=== PATIENT | male | born 1970 | race Caucasian/White ===

== ENCOUNTER 2017-10-22 13:20 | Day surgery (SDC) | payer MEDICARE ==
[2017-10-22] MEDS ORDERED: DIPRIVAN 200 MG/20 ML IV ONE (13:21)
[2017-10-22] MEDS ORDERED: Marcaine 0.5% SDV 10 ML IJ ONE (13:21)
[2017-10-22] MEDS ORDERED: Xylocaine-Mpf 2% 5 Ml Vial IJ ONE (13:21)
[2017-10-22] MEDS ORDERED: Ketamine HCl 50 MG/ML IV ONE (13:21)
[2017-10-22] MEDS ORDERED: Xylocaine-Mpf 2 ML IJ ONE (13:21)
[2017-10-22] MEDS ORDERED: Lactated Ringers 1,000 ML IV ONE (13:21)
--- NOTE | 2017-10-22 14:57 | XRAY ---
Indication: Right L4-L5 MBB. Intraoperative fluoroscopy was provided for 21 seconds. Single digital spot image submitted for interpretation demonstrates a posterior spinal needle tips projecting over the right L3 and L3-L4 interspace. Correlate with intraoperative findings/report. Incidental partially visualized bilateral L5 spinal hardware.
--- NOTE | 2017-10-22 15:02 | XRAY ---
21 seconds fluoroscopy time in surgery for right L4-5 MBB.
--- NOTE | 2017-10-23 11:04 | OP ---
DATE OF PROCEDURE: 10/22/2017 1417 SURGEON: Geoff Roblero D.O. PREOPERATIVE DIAGNOSIS: Degenerative lumbar spine disease, spondylosis, low back pain. POSTOPERATIVE DIAGNOSIS: Degenerative lumbar spine disease, spondylosis, low back pain. PROCEDURE PERFORMED: Right L4-L3 medial branch block under fluoroscopic guidance. DESCRIPTION OF THE PROCEDURE: The patient was taken to the operating room and placed in the prone position on the table. Skin at the injection site was prepped and draped in sterile fashion. Under fluoroscopy, bony anatomy of the targeted injection site was visualized. Induction agent was given as per anesthesia while vital signs were monitored. Local anesthetic agent of 0.5 cc of 1% lidocaine preservative free was introduced to anesthetize the skin and the subcutaneous tissue through the injection site. Under fluoroscopic guidance, a #20 gauge standard spinal needle was advanced into the target medial branch through the oblique approach. The preservative free 0.5 cc of 1% lidocaine and 0.5 cc of 0.25% Marcaine were injected into each of the targeted medial branch nerve. After the needle was being removed, the skin was cleansed with alcohol and then a bandage was applied. No complications or adverse consequences were observed. The patient was returned to the holding area until stabilized before discharge to home. After the procedure the residual pain level was 0 out of 10. There was no muscle weakness after the procedure. The patient will be followed up within ten days after the injection for re-evaluation.
== END 2017-10-22 14:55 | disposition home or self-care (01) ==
LOC: SDC-PAIN 13:20
PROVIDERS: ATTEND Internal Medicine
DX: M96.1 Postlaminectomy syndrome, not elsewhere classified (principal); M54.5 Low back pain; M54.16 Radiculopathy, lumbar region; Z79.891 Long term (current) use of opiate analgesic
CPT/HCPCS: 64493; 64494; 72020; 76000; J2704

== ENCOUNTER 2020-08-07 09:42 | Emergency (ER) | payer MEDICARE ==
[2020-08-07] MEDS ORDERED: BABY ASPIRIN 81 MG CHEW PO ONE (10:15)
[2020-08-07] MEDS ORDERED: Catapres 0.1 MG PO ONE (10:16)
[2020-08-07 10:21] LABS: Absolute Neutrophil Ct (ANC) 8.32 (1.4-6.9); BASOPHIL % 0.2 % (0.0-0.4); Basophil (Absolute #) 0.03 (0-0.4); Eosinophil % 2.3 % (0.00-5.0); Eosinophil (Absolute #) 0.29 (0-0.5); Hematocrit 44.5 % (42-50); Hemoglobin 15.2 gm/dl (12.5-18.0); Lymphocyte (Absolute #) 3.07 (1.0-4.6); Lymphocytes % 23.9 % (24.0-44.0); Mean Cell Volume 87.3 fl (78-100); Mean Corpuscular Hemoglobin 29.8 pg (26-32); Mean Corpuscular Hgb Concent. 34.2 g/dl (32-36); Mean Platelet Volume 10.1 fl (7.5-11.0); Monocyte (Absolute #) 1.14 (0.0-1.3); Monocytes % 8.9 % (0.0-12.0); Neutrophil % 64.7 % (36.0-66.0); Platelet Count 388 K/mm3 (150-450); Red Cell Distribution Width 14.7 % (11.5-14.0); White Blood Count 12.9 K/mm3 (4.0-10.5)
[2020-08-07] MEDS ORDERED: BABY ASPIRIN 81 MG CHEW ONE (10:27)
[2020-08-07] MEDS ORDERED: Catapres 0.1 MG ONE (10:27)
[2020-08-07 10:29] LABS: INR 1.13 (0.8-3.0); PROTIME 12.8 SECONDS (8.83-12.87)
--- NOTE | 2020-08-07 10:31 | XRAY ---
Indication: Left chest pain 2 weeks. Short of breath. Comparison: November 08, 2013. Portable chest remains hyperinflated and clear. Heart and mediastinum structures within normal limits. Bony thorax intact again with distal right clavicle resection. Impression: Continued nonacute hyperinflated chest.
[2020-08-07 10:43] LABS: ALBUMIN 5.2 g/dL (3.5-5.0); ALKALINE PHOSPHATASE 73 U/L (38-126); ANION GAP 14.6 MEQ/L (5-15); BLOOD UREA NITROGEN 23 mg/dL (9-20); CHLORIDE 101 mmol/L (98-107); Calcium 10.2 mg/dL (8.4-10.2); Carbon Dioxide 22 mmol/L (22-30); Creatinine 1 0.67 mg/dL (0.66-1.25); EST GLOMERULAR FILTRATION RATE > 60.0 ML/MIN; Glucose 118 mg/dL (74-106); NT PRO BNP 43.2 pg/mL (0-450); Potassium 3.8 mmol/L (3.5-5.1); SGOT/AST 24 U/L (17-59); SGPT/ALT 12 U/L (0-50); SODIUM 134 mmol/L (137-145); Total Protein 8.6 g/dL (6.3-8.2)
--- NOTE | 2020-08-07 11:53 | ERPHSYRPT ---
- History of Present Illness Source: patient Patient Subjective Stated Complaint: SOB/Chest pain Triage Nursing Assessment: .... Physician History: 51 yo wm w dyspnea x 2wks. Pt has also had some mild L sternal chest pain described as a dull-ache wo radiation. Pain is rated a 2/10 at present but has been up to a 9/10. He has also had some N/V wo diaphoresis. Pt had CV19 in Nov but denies cough/coryza at present. He smokes 1ppd and has HTN/Hyperlipidemia. Timing/Duration: week(s) (2wks) Activities at Onset: rest Severity of Dyspnea-Max: moderate Severity of Dyspnea-Current: mild Possible Cause: occasional episodes (2wks) Modifying Factors: Improves With: activity Associated Symptoms: No anxiety, No cough, No chest pain/discomfort, No edema, No fever, No insomnia, No loss of appetite, No lightheadedness, No wheezing, No weakness, No ankle swelling, No chills, No hemoptysis, No calf pain, No dizziness, No heaviness, No heart racing, No lightheadedness, No leg swelling, No muscle spasms feet, No muscle spasms hands, No painful breathing, No productive cough, No sweating, No tightness Allergies/Adverse Reactions: No Known Drug Allergies Allergy (Verified 08/07/20 09:49) Home Medications: Metoprolol Tartrate 50 mg PO BID 03/19/17 [History] Celecoxib [Celebrex] 200 mg PO DAILY 11/03/17 [History] Hx Tetanus, Diphtheria Vaccination/Date Given: Yes (4 years ago) Hx Influenza Vaccination/Date Given: Yes Hx Pneumococcal Vaccination/Date Given: No Immunizations Up to Date: Yes Travel Risk - International Travel Have you traveled outside of the country in past 3 weeks: No - Coronavirus Screening Are you exhibiting any of the following symptoms?: Yes - Review of Systems Constitutional: No Symptoms Eyes: No Symptoms Ears, Nose, & Throat: No Symptoms Respiratory: Dyspnea, Dyspnea on Exertion (VILLAFANA) Cardiac: Chest Pain Abdominal/Gastrointestinal: Nausea, Vomiting, No Diarrhea Genitourinary Symptoms: No Symptoms Musculoskeletal: No Symptoms Skin: No Symptoms Neurological: No Symptoms Psychological: No Symptoms Hematologic/Lymphatic: No Symptoms Immunological/Allergic: No Symptoms - Past Medical History Pertinent Past Medical History: Yes Neurological History: Other ENT History: No Pertinent History Cardiac History: Hypertension Respiratory History: COPD, Bronchitis Endocrine Medical History: Hyperthyroidism Musculoskeletal History: Degenerative Disk Disease GI Medical History: No Pertinent History, Ulcer, GERD History: No Pertinent History Psycho-Social History: Anxiety Male Reproductive Disorders: No Pertinent History Other Medical History: Thrush. episdoes of numbness in arms and legs - Past Surgical History Past Surgical History: Yes Neuro Surgical History: No Pertinent History Cardiac: No Pertinent History Respiratory: No Pertinent History Gastrointestinal: No Pertinent History Genitourinary: No Pertinent History Musculoskeletal: Orthopedic Surgery Male Surgical History: No Pertinent History Other Surgical History: tonsils, spinal surgery. Repair of clavicle on right side. C6-C7 fusion - Social History Smoking Status: Current every day smoker How long have you smoked: years Exposure to second hand smoke: No Drug Use: none Patient Lives Alone: No - Nursing Vital Signs Nursing Vital Signs: Initial Vital Signs Temperature 98.0 F 08/07/20 09:50 Pulse Rate 81 08/07/20 09:50 Respiratory Rate 24 08/07/20 09:50 Blood Pressure 194/123 08/07/20 09:50 O2 Sat by Pulse Oximetry 100 08/07/20 09:50 Pain Scale Pain Intensity 0 - Physical Exam General Appearance: no apparent distress, anxiety Eye Exam: PERRL/EOMI, eyes nml inspection Ears, Nose, Throat Exam: hearing grossly normal, normal ENT inspection, normal pharynx, No abnormal TM (R), No abnormal TM (L) Neck Exam: normal inspection, non-tender, supple, No Brudzinski, No Kernig's Respiratory Exam: normal breath sounds, lungs clear, airway intact, No respiratory distress Cardiovascular/Chest Exam: normal heart sounds, regular rate/rhythm, normal peripheral pulses, No murmur Abdominal/Gastrointestinal Exam: soft, normal bowel sounds, No tenderness Extremity Exam: non-tender, normal range of motion, normal inspection, normal capillary refill, no calf tenderness, no pedal edema Peripheral Pulses Exam: carotid (R): 2+, carotid (L): 2+ Neurologic Exam: alert, oriented x 3, cooperative, tool or die drawing checker II-XII nml as tested, normal mood/affect, nml cerebellar function, nml station & gait, sensation nml, No motor deficits, No sensory deficit Skin Exam: normal color, warm, dry, No rash Lymphatic Exam: No adenopathy SpO2 Interpretation: normal SpO2: 99 O2 Delivery: Room Air - Course Nursing assessment & vital signs reviewed: Yes EKG Interpreted by Me: RATE (NSR/R69/Normal QT-QTc/No acute ST-Twave changes) - Radiology Exams Chest X-ray Interpretation: Discussed w/ radiologist (CXR Nothing acute per Rad) - CT Exams Chest CT Interpretation: Discussed w/radiologist (CTA chest neg per Rad) Ordered Tests: Active Orders 24 hr Category Date Time Status EKG-ER Only STAT Care 08/07/20 10:07 Active IV Insertion STAT Care 08/07/20 10:07 Active CHEST 1 VIEW (PORTABLE) Stat Exams 08/07/20 10:07 Completed CBC W DIFF Stat Lab 08/07/20 10:07 Completed CMP Stat Lab 08/07/20 10:00 Completed D-DIMER QUANTITATIVE Stat Lab 08/07/20 10:00 Completed NT PRO BNP Stat Lab 08/07/20 10:00 Completed PROTIME WITH INR Stat Lab 08/07/20 10:00 Completed TROPONIN Q3H Lab 08/07/20 10:00 Completed TROPONIN Q3H Lab 08/07/20 13:53 Completed TROPONIN Q3H Lab 08/07/20 16:15 Ordered TROPONIN Q3H Lab 08/07/20 19:15 Ordered TROPONIN Q3H Lab 08/07/20 22:15 Ordered Medication Summary Discontinued Medications Generic Name Dose Route Start Last Admin Trade Name Freq PRN Reason Stop Dose Admin Aspirin 324 mg 08/07/20 10:15 08/07/20 10:28 Baby Aspirin 81 Mg Chew PO 08/07/20 10:16 324 mg STAT ONE Administration Aspirin Confirm 08/07/20 10:27 Baby Aspirin 81 Mg Chew Administered 08/07/20 10:28 Dose 324 mg .ROUTE .STK-MED ONE Clonidine 0.2 mg 08/07/20 10:16 08/07/20 10:28 Catapres 0.1 Mg PO 08/07/20 10:17 0.2 mg STAT ONE Administration Clonidine Confirm 08/07/20 10:27 Catapres 0.1 Mg Administered 08/07/20 10:28 Dose 0.2 mg .ROUTE .STK-MED ONE Lab/Rad Data: Laboratory Result Diagrams 08/07/20 10:07 08/07/20 10:00 Laboratory Results 08/07/20 08/07/20 08/07/20 Range/Units 13:53 10:07 10:00 WBC 12.9 H (4.0-10.5) K/mm3 RBC 5.10 (4.1-5.6) M/mm3 Hgb 15.2 (12.5-18.0) gm/dl Hct 44.5 (42-50) % MCV 87.3 (78-100) fl MCH 29.8 (26-32) pg MCHC 34.2 (32-36) g/dl RDW 14.7 H (11.5-14.0) % Plt Count 388 (150-450) K/mm3 MPV 10.1 (7.5-11.0) fl Gran % 64.7 (36.0-66.0) % Eos # (Auto) 0.29 (0-0.5) Absolute Lymphs (auto) 3.07 (1.0-4.6) Absolute Monos (auto) 1.14 (0.0-1.3) Lymphocytes % 23.9 L (24.0-44.0) % Monocytes % 8.9 (0.0-12.0) % Eosinophils % 2.3 (0.00-5.0) % Basophils % 0.2 (0.0-0.4) % Absolute Granulocytes 8.32 H (1.4-6.9) Basophils # 0.03 (0-0.4) PT (8.83-12.87) SECONDS INR (0.8-3.0) D-Dimer (215-500) ng/mL Sodium (137-145) mmol/L Potassium (3.5-5.1) mmol/L Chloride (98-107) mmol/L Carbon Dioxide (22-30) mmol/L Anion Gap (5-15) MEQ/L BUN (9-20) mg/dL Creatinine (0.66-1.25) mg/dL Estimated GFR ML/MIN Glucose (74-106) mg/dL Calcium (8.4-10.2) mg/dL Total Bilirubin (0.2-1.3) mg/dL AST (17-59) U/L ALT (0-50) U/L Alkaline Phosphatase (38-126) U/L Troponin I < 0.012 < 0.012 (0.000-0.034) ng/mL NT-Pro-B Natriuret Pep (0-450) pg/mL Serum Total Protein (6.3-8.2) g/dL Albumin (3.5-5.0) g/dL 08/07/20 08/07/20 Range/Units 10:00 10:00 WBC (4.0-10.5) K/mm3 RBC (4.1-5.6) M/mm3 Hgb (12.5-18.0) gm/dl Hct (42-50) % MCV (78-100) fl MCH (26-32) pg MCHC (32-36) g/dl RDW (11.5-14.0) % Plt Count (150-450) K/mm3 MPV (7.5-11.0) fl Gran % (36.0-66.0) % Eos # (Auto) (0-0.5) Absolute Lymphs (auto) (1.0-4.6) Absolute Monos (auto) (0.0-1.3) Lymphocytes % (24.0-44.0) % Monocytes % (0.0-12.0) % Eosinophils % (0.00-5.0) % Basophils % (0.0-0.4) % Absolute Granulocytes (1.4-6.9) Basophils # (0-0.4) PT 12.8 (8.83-12.87) SECONDS INR 1.13 (0.8-3.0) D-Dimer 394 (215-500) ng/mL Sodium 134 L (137-145) mmol/L Potassium 3.8 (3.5-5.1) mmol/L Chloride 101 (98-107) mmol/L Carbon Dioxide 22 (22-30) mmol/L Anion Gap 14.6 (5-15) MEQ/L BUN 23 H (9-20) mg/dL Creatinine 0.67 (0.66-1.25) mg/dL Estimated GFR > 60.0 ML/MIN Glucose 118 H (74-106) mg/dL Calcium 10.2 (8.4-10.2) mg/dL Total Bilirubin 1.00 (0.2-1.3) mg/dL AST 24 (17-59) U/L ALT 12 (0-50) U/L Alkaline Phosphatase 73 (38-126) U/L Troponin I (0.000-0.034) ng/mL NT-Pro-B Natriuret Pep 43.2 (0-450) pg/mL Serum Total Protein 8.6 H (6.3-8.2) g/dL Albumin 5.2 H (3.5-5.0) g/dL - Progress Progress: improved Air Movement: good Progress Note: 08/07/20 13:17 BP decreased w 0.2 po Clonidine/324mg po ASA given 08/07/20 14:49 Trop neg x2 08/07/20 14:56 Spoke w prema Mcguire to send home with cardiology follow up on Friday. Counseled pt/family regarding: lab results, diagnosis, need for follow-up, rad results - Departure Departure Disposition: Home Clinical Impression: Dyspnea, Chest pain Condition: Stable Critical Care Time: No Referrals: MARYCRUZ WATTS [Primary Care Provider] - Instructions: Shortness of Breath (Dyspnea) (DC), Chest Pain (DC) Additional Instructions: Keep your cardiology appointment on Friday Continue current medications Return to ER for increassing pain or shortness of breath
[2020-08-07 13:14] VITALS: O2SAT 99
[2020-08-07 14:58] VITALS: BP 132/84; PULSE 56
== END 2020-08-07 15:17 | disposition home or self-care (01) ==
LOC: ED 09:42
DX: R07.9 Chest pain, unspecified (principal); R06.00 Dyspnea, unspecified; I10 Essential (primary) hypertension; E78.5 Hyperlipidemia, unspecified; R11.2 Nausea with vomiting, unspecified; E05.90 Thyrotoxicosis, unspecified without thyrotoxic crisis or storm; J44.9 Chronic obstructive pulmonary disease, unspecified; Z79.899 Other long term (current) drug therapy
CPT/HCPCS: 36000; 36415; 71045; 80053; 83880; 84484; 85025; 85379; 85610; 93005; 99284; A9270-GY

== ENCOUNTER 2020-09-08 05:53 | Day surgery (SDC) | payer MEDICARE ==
[2020-09-08] MEDS ORDERED: Lactated Ringers 1,000 ML IV SCH (06:00)
[2020-09-08] MEDS ORDERED: Xylocaine-Mpf 2% 5 Ml Vial ONE (07:49)
[2020-09-08] MEDS ORDERED: DIPRIVAN 200 MG/20 ML IV ONE (07:49)
[2020-09-08 08:28] VITALS: O2SAT 98
--- NOTE | 2020-09-08 09:10 | OP ---
SURGERY DATE/TIME: 09/08/2020 0745 PREOPERATIVE DIAGNOSIS: Epigastric pain. POSTOPERATIVE DIAGNOSIS: Mild gastritis. PROCEDURE: Esophagogastroduodenoscopy with cold forceps biopsy. SURGEON: Dr. Humphreys. ANESTHESIA: Medications were given by the anesthesia department. HISTORY: The patient is a 50 year old white male patient who reports that it feels like there is a ball in his stomach. He has been having epigastric pain for some time now. He has had evaluations by cardiology and pulmonary. He has been placed on amoxicillin and prednisone for this problem. He has still not improved. The patient is felt the need to have endoscopic evaluation. He was appraised of the risks of the procedure including the risk of perforation, phlebitis, untoward reaction to medication, bleeding and missed lesions. The patient verbalized his understanding and desired to have the procedure performed. DESCRIPTION OF PROCEDURE: The patient was given the medications by the anesthesia department. He had continuous pulse oximetry, ECG monitoring, intermittent blood pressure monitoring and tidal CO2 monitoring during the examination. He was placed in the left lateral decubitus position. A bite block was placed and the flexible Olympus gastroscope was used to intubate the oropharynx. A view of the larynx was obtained and was normal. The scope was easily introduced in the esophagus which appeared to be normal throughout its length. The stomach was entered where normal gastric rugal folds were seen and these distended nicely with insufflation of air. The scope was passed along the greater curvature of the stomach to the antrum. The pylorus encountered and intubated. Duodenum inspected and found to be normal. The scope is withdrawn towards the stomach again. A retroflex view was obtained of the lesser curvature, fundus and cardia regions of the stomach and this appeared to be normal as well. The scope was then redirected towards the gastric antrum and biopsies were obtained to rule out the presence of Helicobacter pylori-type organisms. The scope was then removed from the patient who tolerated the procedure well and was sent back to the hospital siu in good condition.
[2020-09-08 09:21] VITALS: BP 138/81; PULSE 72
== END 2020-09-08 09:20 | disposition home or self-care (01) ==
LOC: SDC 05:53
PROVIDERS: ATTEND Family Medicine
DX: K29.70 Gastritis, unspecified, without bleeding (principal)
CPT/HCPCS: 99000; J2704

== ENCOUNTER 2021-11-19 05:49 | Day surgery (SDC) | payer MEDICARE ==
[2021-11-19] MEDS ORDERED: Lactated Ringers 1,000 ML IV SCH (06:30)
[2021-11-19] MEDS ORDERED: Xylocaine-Mpf 2% 5 Ml Vial ONE (07:02)
[2021-11-19] MEDS ORDERED: DIPRIVAN 200 MG/20 ML IV ONE ×2 (07:02→07:18)
[2021-11-19 07:47] VITALS: O2SAT 97
[2021-11-19 08:13] VITALS: BP 153/90; PULSE 59
--- NOTE | 2021-11-19 13:24 | OP ---
SURGERY DATE/TIME: 11/19/2021 0704 PREOPERATIVE DIAGNOSIS: Epigastric pain. POSTOPERATIVE DIAGNOSIS: Moderate gastritis. PROCEDURE: EGD with cold forceps biopsy. SURGEON: Dr. Humphreys. ANESTHESIA: MAC. Medications given by anesthesia department. BRIEF HISTORY: The patient is a 51-year-old white male patient presenting for epigastric pain he has had for months. The patient does not take any NSAID's and has nothing on his medical chart that would indicate reason for his pain. The patient was felt the need to have endoscopic evaluation. He was appraised of the risks of the procedure including the risk of perforation, phlebitis, untoward reaction to medication and missed lesions. The patient verbalized his understanding and desired to have the procedure performed. DESCRIPTION OF PROCEDURE: The patient was given the medications by the anesthesia department. He had continuous pulse oximetry, ECG monitoring, intermittent blood pressure monitoring. He was placed in the left lateral decubitus position. A bite block was placed. Flexible Olympus gastroscope was used to intubate the oropharynx. A view of the larynx was obtained and was normal. The scope was easily passed in the esophagus which was normal throughout its length. The stomach was entered where normal gastric rugal folds were seen and these distended nicely with insufflation of air. The scope was passed along the greater curvature of the stomach to the antrum. Retroflex view was obtained of the lesser curvature, fundus and cardia regions of the stomach and these appeared to be normal. The scope was then redirected towards the gastric antrum. Pylorus encountered and intubated. Duodenum inspected and found to be normal. The scope was withdrawn towards the stomach. Cold forceps biopsy was used to biopsy the gastric antrum to rule out the presence of Helicobacter pylori-type organisms. The scope was then removed from the patient who tolerated the procedure well and was sent back to the hospital siu in good condition.
== END 2021-11-19 08:10 | disposition home or self-care (01) ==
LOC: SDC 05:49 → EDSTATUS 14:41
PROVIDERS: ATTEND Family Medicine
DX: K29.70 Gastritis, unspecified, without bleeding (principal); R10.13 Epigastric pain
CPT/HCPCS: J2704

== ENCOUNTER 2022-10-04 05:53 | Day surgery (SDC) | payer MEDICARE ==
[2022-10-04 06:14] LABS: Hematocrit 43.3 % (42-50); Hemoglobin 14.1 g/dL (12.5-18.0); Mean Cell Volume 91.9 fL (78-100); Mean Corpuscular Hemoglobin 29.9 pg (26-32); Mean Corpuscular Hgb Concent. 32.6 g/dL (32-36); Mean Platelet Volume 8.9 fL (7.5-11.0); Platelet Count 333 x10^3/uL (150-450); Red Blood Count 4.71 x10^6/uL (4.1-5.6); Red Cell Distribution Width 14.2 % (11.5-14.0); White Blood Count 12.7 x10^3/uL (4.0-10.5)
[2022-10-04 06:27] LABS: ANION GAP 13.7 MEQ/L (5-15); BLOOD UREA NITROGEN 27 mg/dL (9-20); CHLORIDE 105 mmol/L (98-107); Calcium 9.1 mg/dL (8.4-10.2); Carbon Dioxide 26 mmol/L (22-30); EST GLOMERULAR FILTRATION RATE > 60.0 ML/MIN; Glucose 83 mg/dL (74-106); Potassium 3.8 mmol/L (3.5-5.1); SODIUM 141 mmol/L (137-145)
[2022-10-04] MEDS ORDERED: Lactated Ringers 1,000 ML IV SCH (06:30)
[2022-10-04] MEDS ORDERED: CEFAZOLIN 2 GM-D5W BAG** 2 GM/50 ML ML IV SCH (06:30)
[2022-10-04] MEDS ORDERED: Versed 2 MG/2 ML Injection ONE ×2 (07:05→07:10)
[2022-10-04] MEDS ORDERED: Xylocaine-Mpf 2% 5 Ml Vial ONE (07:09)
[2022-10-04] MEDS ORDERED: DIPRIVAN 200 MG/20 ML IV ONE (07:09)
[2022-10-04] MEDS ORDERED: SUBLIMAZE 100 MCG/2 ML ONE (07:09)
[2022-10-04] MEDS ORDERED: XYLOCAINE 1% HCL 20 ML MDV ONE (07:20)
[2022-10-04] MEDS ORDERED: Marcaine Mpf 0.5% Vial 30 Ml ONE (07:20)
[2022-10-04 08:52] VITALS: BP 118/86; PULSE 78; O2SAT 99
--- NOTE | 2022-10-07 10:39 | OP ---
SURGERY DATE/TIME: 10/04/2022 0743 PREOPERATIVE DIAGNOSIS: Soft tissue mass right foot. POSTOPERATIVE DIAGNOSIS: Soft tissue mass right foot. PROCEDURE: Excision of soft tissue mass right foot. SURGEON: Adrian Clarke DPM. STATE ASSESSED PROPERTIES DIRECTOR: None. ANESTHESIA: Monitored anesthesia care plus preoperative local block consisting of 20 cc of 1:1 mixture injected in a mini-Handley block-type fashion. HEMOSTASIS: Ankle tourniquet set to 250 mm of Mercury for 10 minutes total tourniquet minutes. ESTIMATED BLOOD LOSS: Minimal. MATERIALS: 3-0 Nylon. INJECTABLES: 20 cc of 1:1 mixture of 1% lidocaine plain and 0.5% bupivacaine plain. INDICATIONS FOR THE PROCEDURE: Elia is a very pleasant 52-year-old male known to my service for pain involving the lower extremities secondary to hammer toes. To his right foot the patient has complaints of pain in between his fourth and fifth digit as a result of some hammering digits with adductovarus orientation. As a result, he has not necessarily developing kissing lesions between the toes however within the web space he has developed some significantly calloused tissue that causes significant amount of irritation with ambulation and shoe gear. At this time the patient is desperate to have this lesion removed. Attempts in the office were unsuccessful due to the level pain that he was having. At this time the decision was made to proceed and incise in total down to the level of the subcutaneous layer soft tissue mass and find out for sure what its pathology of origin is. The patient understands all risks, complications and benefits of surgical intervention at this time including but not limited to infection, hematoma, seroma, possibility of delayed wound healing, nonwound healing and failure of surgical intervention. The patient understands all of these risks and wishes to proceed. DESCRIPTION OF PROCEDURE AND FINDINGS: At this time the patient was brought into the OR and placed on the OR table in the supine position. At this time adequate monitored anesthesia care was administered until the patient was sedated. A well-padded ankle tourniquet was applied and the tourniquet set to 250 mm of Mercury. At this time the right foot was prepped and draped in the typical sterile fashion and lowered onto the surgical field. At this time attention was directed to the fifth web space where gentle traction was applied to the fifth digit laterally in order to gain access to the web space. The soft tissue mass was then excised this was excised in total and sent off the field for pathologic assessment. At this time copious amounts of sterile saline were utilized to flush the surgical site. Iodine was then used to flush the surgical site and then once again sterilized with sterile saline. 3-0 Nylon was then utilized to coapt the skin edges in a simple interrupted-type fashion. A dressing consisting of Betadine, Adaptic, 4x4, Kerlix and HAKEEM was applied to the patient's right lower extremity. The tourniquet was let down. Total tourniquet minutes was noted. The patient then was reversed from anesthesia and returned to the postoperative anesthesia care unit with vital signs stable and vascular status intact. The patient handled the anesthesia as well as the procedure without significant complication. Postoperative orders as indicated in the patient's discharge chart.
== END 2022-10-04 09:00 | disposition home or self-care (01) ==
LOC: SDC 05:53
PROVIDERS: ATTEND Podiatrist Foot & Ankle Surgery
DX: R22.41 Localized swelling, mass and lump, right lower limb (principal)
CPT/HCPCS: 11420; 36415; 80048; 85027; J0690; J2250; J2704; J3010

== ENCOUNTER 2024-04-07 14:34 | Day surgery (SDC) | payer MEDICARE ==
[2024-04-07] MEDS ORDERED: Xylocaine-Mpf 2% 5 Ml Vial IJ ONE (14:35)
[2024-04-07] MEDS ORDERED: DIPRIVAN 200 MG/20 ML IV ONE (15:55)
[2024-04-07] MEDS ORDERED: Lactated Ringers 1,000 ML IV ONE (16:11)
--- NOTE | 2024-04-07 17:40 | XRAY ---
Indication: Left C2-C4 MBB. Intraoperative fluoroscopy provided for 20 seconds. 2 digital spot image submitted for interpretation demonstrates posterior needle tips projecting over the expected left C2-C4 nerve roots. Correlate with intraoperative findings/report. Incidental lower cervical fusion hardware.
--- NOTE | 2024-04-07 17:44 | XRAY ---
20 seconds of fluoroscopy was used in surgery for a left C2-C4 MBB.
== END 2024-04-07 16:25 | disposition home or self-care (01) ==
LOC: SDC-PAIN 14:34
PROVIDERS: ATTEND Psychiatry & Neurology Pain Medicine
DX: M47.812 Spondylosis without myelopathy or radiculopathy, cervical region (principal)
CPT/HCPCS: 64490; 64491; 72040; 77002; J2704

== ENCOUNTER 2024-05-05 07:52 | Day surgery (SDC) | payer MEDICARE ==
[2024-05-05] MEDS ORDERED: BUPIVACAINE 0.5% VIAL IJ ONE (07:53)
[2024-05-05] MEDS ORDERED: DIPRIVAN 200 MG/20 ML IV ONE ×2 (09:36→09:40)
[2024-05-05] MEDS ORDERED: Lactated Ringers 1,000 ML IV ONE (09:52)
--- NOTE | 2024-05-05 10:31 | XRAY ---
Indication: Left C2-C4 MBB. Intraoperative fluoroscopy provided for 12 seconds. 3 digital spot image submitted for interpretation demonstrates posterior needle tips projecting over the expected left C2-C4 nerve roots. Correlate with intraoperative findings/report. Incidental lower cervical fusion hardware.
--- NOTE | 2024-05-05 11:33 | XRAY ---
15 seconds of fluoroscopy was used in surgery for a left C2-C4 MBB.
== END 2024-05-05 10:05 | disposition home or self-care (01) ==
LOC: SDC-PAIN 07:52
PROVIDERS: ATTEND Psychiatry & Neurology Pain Medicine
DX: M47.812 Spondylosis without myelopathy or radiculopathy, cervical region (principal)
CPT/HCPCS: 64490; 64491; 72040; 77002; J2704

== ENCOUNTER 2024-06-02 06:56 | Day surgery (SDC) | payer MEDICARE ==
[2024-06-02] MEDS ORDERED: Decadron 4 MG INJ IV ONE (06:57)
[2024-06-02] MEDS ORDERED: BUPIVACAINE 0.5% VIAL IJ ONE (06:57)
[2024-06-02] MEDS ORDERED: LIDOCAINE HCL 1% AMPUL 5 ML IJ ONE (06:57)
[2024-06-02] MEDS ORDERED: DIPRIVAN 200 MG/20 ML IV ONE ×2 (08:00→08:08)
[2024-06-02] MEDS ORDERED: PHENYLEPHRINE HCL ONE (08:13)
--- NOTE | 2024-06-02 10:11 | XRAY ---
Indication: Left C2-C4 RFA. Intraoperative fluoroscopy provided for 17 seconds. 3 digital spot images submitted for interpretation demonstrates posterior needle tips projecting over the expected left C2-C4 nerve roots. Correlate with intraoperative findings/report. Incidental lower cervical fusion hardware.
--- NOTE | 2024-06-02 12:10 | XRAY ---
17 seconds of fluoroscopy was used in surgery for a left C2-C4 RFA.
== END 2024-06-02 08:36 | disposition home or self-care (01) ==
LOC: SDC-PAIN 06:56
PROVIDERS: ATTEND Psychiatry & Neurology Pain Medicine
DX: M47.812 Spondylosis without myelopathy or radiculopathy, cervical region (principal)
CPT/HCPCS: 64633; 64634; 72040; 77002; J1100; J2371; J2704

== ENCOUNTER 2024-09-08 09:55 | Emergency (ER) | payer MEDICARE ==
[2024-09-08 10:04] VITALS: TEMP 97.6
[2024-09-08 10:29] LABS: Absolute Neutrophil Ct (ANC) 7.32 x10^3/uL (1.78-5.38); BASOPHIL % 0.4 % (0.2-1.2); Basophil (Absolute #) 0.04 x10^3/uL (0.01-0.08); Eosinophil % 2.8 % (0.8-7.0); Eosinophil (Absolute #) 0.31 x10^3/uL (0.04-0.54); Hematocrit 41.2 % (40.1-51.0); Hemoglobin 14.1 g/dL (13.7-17.5); IMMATURE GRAN # 0.03 x10^3u/L (0.001-0.031); IMMATURE GRAN % 0.3 % (0.001-0.429); Lymphocyte (Absolute #) 2.21 x10^3/uL (1.32-3.57); Mean Cell Volume 89.4 fL (79.0-92.2); Mean Corpuscular Hemoglobin 30.6 pg (25.7-32.2); Mean Corpuscular Hgb Concent. 34.2 g/dL (32.3-36.5); Mean Platelet Volume 9.7 fL (9.4-12.4); Monocyte (Absolute #) 1.14 x10^3/uL (0.30-0.82); Monocytes % 10.3 % (5.3-12.2); Neutrophil % 66.2 % (34.0-67.9); Platelet Count 301 x10^3/uL (163-337); Red Blood Count 4.61 x10^6/uL (4.63-6.08); Red Cell Distribution Width 14.2 % (11.6-14.4); White Blood Count 11.1 x10^3/uL (4.23-9.07)
[2024-09-08] MEDS ORDERED: BABY ASPIRIN 81 MG CHEW ONE (10:42)
[2024-09-08] MEDS ORDERED: Zofran 4 MG/2 ML VIAL ONE (10:42)
[2024-09-08] MEDS ORDERED: Norflex 60 MG/2 ML ONE (10:42)
[2024-09-08] MEDS ORDERED: SUBLIMAZE 100 MCG/2 ML ONE (10:43)
[2024-09-08] MEDS: Zofran 4 MG/2 ML VIAL IV ONE (10:45)
[2024-09-08] MEDS: Norflex 60 MG/2 ML IV ONE (10:45)
[2024-09-08] MEDS: BABY ASPIRIN 81 MG CHEW PO ONE (10:45)
[2024-09-08] MEDS: SUBLIMAZE 100 MCG/2 ML IV ONE (10:46)
[2024-09-08 10:51] LABS: ALBUMIN 5.3 g/dL (3.5-5.0); ANION GAP 17.5 MEQ/L (5-15); BILIRUBIN,TOTAL 0.8 mg/dL (0.2-1.3); Creatinine 1 0.68 mg/dL (0.66-1.25); EST GLOMERULAR FILTRATION RATE 111.8 ML/MIN; Potassium 4.5 mmol/L (3.5-5.1); Total Protein 8.1 g/dL (6.3-8.2)
--- NOTE | 2024-09-08 11:58 | ERPHSYRPT ---
- History of Present Illness Time Seen by Provider: 09/08/24 09:56 Historian: patient Exam Limitations: no limitations Patient Subjective Stated Complaint: pt had been over to see Dr. Mathew and was sent to get a chest xray and before he got the xray they called him and told him that his ekg had been read and needed to go to the ER, pt is having left jaw pain and back pain Triage Nursing Assessment: Pt brought self to the ER, hypertensive, rates pain as 7/10, pulses normal, skin n/w/d, pain in back and jaw, nausea, denies vomiting, pt walked into the ER without assistance Physician History: 54-year-old male with history of hypertension, chronic neck and lower back pain status post fusion presented in the ER from primary care office with substernal chest pain with some radiation to the left jaw and back. Patient reports this has been going on for months and was at primary care office where he had EKG done and is sent in here for further evaluation. Patient reports having shortness of breath with exertion. Patient is a smoker and has chronic smoker's cough which is not any worse than usual. No fever or chills reported. Aspirin Treatment Today: no aspirin today Allergies/Adverse Reactions: hydrocodone Adverse Reaction (Verified 09/08/24 10:04) nausea, vomiting Home Medications: Amlodipine Besylate [Norvasc] 5 mg PO DAILY 09/07/20 [History] Ropinirole HCl 1 mg PO HS 09/07/20 [History] Gabapentin [Neurontin ] 900 mg PO QID 11/15/21 [History] Ropinirole HCl 0.5 mg [Requip 0.5 MG] 0.5 mg PO DAILY 11/15/21 [History] Simvastatin 10 mg [Zocor 10MG] 10 mg PO DAILY 11/15/21 [History] Famotidine 20 mg [Pepcid 20 MG] 20 mg PO BID 09/13/22 [History] Benazepril/Hydrochlorothiazide [Benazepril-Hctz 20-12.5 mg Tab] 1 tape PO DAILY 09/08/24 [History] Fluticasone Propionate [Flonase NASAL] 1 spray NS DAILY 09/08/24 [History] Metoprolol Succinate 25 mg Xl* [Toprol-Xl 25MG Tablets] 25 mg PO DAILY 09/08/24 [History] Omeprazole 20 mg PO BID 09/08/24 [History] Tamsulosin HCl 0.4 mg [Flomax 0.4 MG] 0.4 mg PO DAILY 09/08/24 [History] Tizanidine HCl 4 mg [Zanaflex 4 MG] 4 mg PO DAILY 09/08/24 [History] Trazodone HCl 100 mg PO HS 09/08/24 [History] Hx Tetanus, Diphtheria Vaccination/Date Given: Yes (4 years ago) Hx Influenza Vaccination/Date Given: Yes Hx Pneumococcal Vaccination/Date Given: No Travel Risk - International Travel Have you traveled outside of the country in past 3 weeks: No - Emerging Infectious Disease Are you exhibiting symptoms associated with any current EIDs: No - Review of Systems Constitutional: No Symptoms Eyes: No Symptoms Ears, Nose, & Throat: No Symptoms Respiratory: Cough, Dyspnea on Exertion ([place]) Cardiac: Chest Pain Abdominal/Gastrointestinal: No Symptoms Genitourinary Symptoms: No Symptoms Musculoskeletal: Arthralgias, Back Pain, Neck Pain Skin: No Symptoms Neurological: No Symptoms Endocrine: No Symptoms Hematologic/Lymphatic: No Symptoms - Past Medical History Pertinent Past Medical History: Yes Neurological History: Migraines ENT History: No Pertinent History Cardiac History: High Cholesterol, Hypertension Respiratory History: Emphysema, Other Endocrine Medical History: Other Musculoskeletal History: Degenerative Disk Disease GI Medical History: GERD History: No Pertinent History Psycho-Social History: Anxiety Male Reproductive Disorders: No Pertinent History Other Medical History: PATIENT REPORTS RECENTLY FOUND SPOTS ON LUNGS AND CURRENLTY ON STEROIDS AND ANTIBIOTICS. GOING FOR CT SCAN FOR LUNGS AND GETTING THYROID CHECKED DUE TO LAB WORK "OUT OF ORDER". REPORTS HAD SURGERY FOR REMOVAL OF KNOT ON RIGHT FOOT RECENTLY. PATIENT REPORTS HAS PAIN IN NECK PRIMARILY ON LEFT SIDE BUT IN THE PAST TWO WEEK STARTING TO COME INTO RIGHT SIDE. PAIN GOING UP NECK AND INTO FACE AND BACK OF HEAD. STATES DR BRANDT TOLD HIM FACE ISSUES PROBABLY MUSCLE/SOFT TISSUE. - Past Surgical History Past Surgical History: Yes Neuro Surgical History: No Pertinent History Cardiac: No Pertinent History Respiratory: No Pertinent History Gastrointestinal: No Pertinent History Genitourinary: No Pertinent History Musculoskeletal: Orthopedic Surgery Male Surgical History: No Pertinent History Other Surgical History: tonsils, spinal surgery..lumbar screw and plates 2010,2019. Repair of clavicle on right side. C6-C7 fusion throat, tennis right elbow - Social History Smoking Status: Current every day smoker How long have you smoked: 35 years Exposure to second hand smoke: Yes Drug Use: none Patient Lives Alone: No - Social Determinants of Health Do you worry about a steady place to live?: No Do you have any problems with any of the following?: No known problems In the past 12 months,have you had to go without utilities?: No Transportation Issues: No Has anyone in your support network made you feel unsafe?: No Have you or anyone in your house had to go without enough: No - Nursing Vital Signs Nursing Vital Signs: Initial Vital Signs Temperature 97.6 F 09/08/24 09:57 Pulse Rate 59 L 09/08/24 09:57 Respiratory Rate 18 09/08/24 09:57 Blood Pressure 141/91 09/08/24 09:57 O2 Sat by Pulse Oximetry 100 09/08/24 09:57 Pain Scale Pain Intensity 7 - Physical Exam General Appearance: no apparent distress Eye Exam: PERRL/EOMI Ears, Nose, Throat Exam: normal ENT inspection Neck Exam: normal inspection, non-tender, supple, full range of motion Respiratory Exam: normal breath sounds, chest tenderness ( thoracic paraspinal area), lungs clear Cardiovascular Exam: regular rate/rhythm, normal heart sounds Gastrointestinal/Abdomen Exam: soft, normal bowel sounds, No tenderness Back Exam: normal inspection, normal range of motion, muscle spasm Extremity Exam: normal inspection, normal range of motion Neurologic Exam: alert, oriented x 3, cooperative Skin Exam: normal color SpO2 Interpretation: normal SpO2: 96 O2 Delivery: Room Air - Course EKG Interpreted by Me: RATE (60), Sinus Rhythm, NORMAL AXIS, NORMAL INTERVALS, NORMAL QRS, Other (Second EKG time 1343. Rate 41 bpm, sinus bradycardia, normal axis, normal intervals, nonspecific ST changes, no ST elevations or depressions.) Ordered Tests: Active Orders 24 hr Category Date Time Status Photographic Laboratory Technician STAT Care 09/08/24 10:22 Completed EKG-ER Only STAT Care 09/08/24 10:22 Completed IV Insertion STAT Care 09/08/24 10:22 Completed Pulse Oximetry (ED) STAT Care 09/08/24 10:22 Completed Re-Check Vital Signs STAT Care 09/08/24 10:22 Completed CHEST WITH CONTRAST [CT] Stat Exams 09/08/24 11:25 Completed TROPONIN Q4H Lab 09/08/24 13:20 Completed Medication Summary Discontinued Medications Generic Name Dose Route Start Last Admin Trade Name Luisq PRN Reason Stop Dose Admin Aspirin 324 mg 09/08/24 10:22 09/08/24 10:45 Aspirin 81 Mg Tab.Chew PO 09/08/24 10:23 324 mg STAT ONE Administration Aspirin Confirm 09/08/24 10:42 Aspirin 81 Mg Tab.Chew Administered 09/08/24 10:43 Dose 324 mg .ROUTE .STK-MED ONE Fentanyl Citrate 50 mcg 09/08/24 10:22 09/08/24 10:46 Fentanyl Citrate 100 Mcg/2 Ml* Vial IV 09/08/24 10:23 50 mcg STAT ONE Administration Fentanyl Citrate Confirm 09/08/24 10:43 Fentanyl Citrate 100 Mcg/2 Ml* Vial Administered 09/08/24 10:44 Dose 100 mcg .ROUTE .STK-MED ONE Ondansetron HCl 4 mg 09/08/24 10:22 09/08/24 10:45 Ondansetron Hcl 4 Mg/2 Ml Vial IV 09/08/24 10:23 4 mg STAT ONE Administration Ondansetron HCl Confirm 09/08/24 10:42 Ondansetron Hcl 4 Mg/2 Ml Vial Administered 09/08/24 10:43 Dose 4 mg .ROUTE .STK-MED ONE Orphenadrine Citrate 60 mg 09/08/24 10:23 09/08/24 10:45 Orphenadrine Citrate 60 Mg/2 Ml Vial IV 09/08/24 10:24 60 mg STAT ONE Administration Orphenadrine Citrate Confirm 09/08/24 10:42 Orphenadrine Citrate 60 Mg/2 Ml Vial Administered 09/08/24 10:43 Dose 60 mg .ROUTE .STK-MED ONE Lab/Rad Data: Laboratory Result Diagrams 09/08/24 Unknown 09/08/24 Unknown Laboratory Results 09/08/24 09/08/24 09/08/24 Range/Units Unknown Unknown Unknown WBC (4.23-9.07) x10^3/uL RBC (4.63-6.08) x10^6/uL Hgb (13.7-17.5) g/dL Hct (40.1-51.0) % MCV (79.0-92.2) fL MCH (25.7-32.2) pg MCHC (32.3-36.5) g/dL RDW (11.6-14.4) % Plt Count (163-337) x10^3/uL MPV (9.4-12.4) fL Gran % (34.0-67.9) % Immature Gran % (Auto) (0.001-0.429) % Nucleat RBC Rel Count (0.00-0.2) % Eos # (Auto) (0.04-0.54) x10^3/uL Immature Gran # (Auto) (0.001-0.031) x10^3u/L Absolute Lymphs (auto) (1.32-3.57) x10^3/uL Absolute Monos (auto) (0.30-0.82) x10^3/uL Absolute Nucleated RBC (0.00-0.012) x10^3u/L Lymphocytes % (21.8-53.1) % Monocytes % (5.3-12.2) % Eosinophils % (0.8-7.0) % Basophils % (0.2-1.2) % Absolute Granulocytes (1.78-5.38) x10^3/uL Basophils # (0.01-0.08) x10^3/uL D-Dimer 0.31 (0.0-0.50) mg/L Sodium (135-145) mmol/L Potassium (3.5-5.1) mmol/L Chloride (98-107) mmol/L Carbon Dioxide (22-30) mmol/L Anion Gap (5-15) MEQ/L BUN (9-20) mg/dL Creatinine (0.66-1.25) mg/dL Estimated GFR ML/MIN Glucose (74-106) mg/dL Calcium (8.4-10.2) mg/dL Total Bilirubin (0.2-1.3) mg/dL AST (17-59) U/L ALT (0-50) U/L Alkaline Phosphatase (38-126) U/L Creatine Kinase (55-170) U/L Troponin I < 0.012 (0.000-0.033) ng/mL NT-Pro-B Natriuret Pep 33.1 (<300) pg/mL Serum Total Protein (6.3-8.2) g/dL Albumin (3.5-5.0) g/dL 09/08/24 09/08/24 09/08/24 Range/Units Unknown Unknown 13:20 WBC 11.1 H (4.23-9.07) x10^3/uL RBC 4.61 L (4.63-6.08) x10^6/uL Hgb 14.1 (13.7-17.5) g/dL Hct 41.2 (40.1-51.0) % MCV 89.4 (79.0-92.2) fL MCH 30.6 (25.7-32.2) pg MCHC 34.2 (32.3-36.5) g/dL RDW 14.2 (11.6-14.4) % Plt Count 301 (163-337) x10^3/uL MPV 9.7 (9.4-12.4) fL Gran % 66.2 (34.0-67.9) % Immature Gran % (Auto) 0.3 (0.001-0.429) % Nucleat RBC Rel Count 0.0 (0.00-0.2) % Eos # (Auto) 0.31 (0.04-0.54) x10^3/uL Immature Gran # (Auto) 0.03 (0.001-0.031) x10^3u/L Absolute Lymphs (auto) 2.21 (1.32-3.57) x10^3/uL Absolute Monos (auto) 1.14 H (0.30-0.82) x10^3/uL Absolute Nucleated RBC 0.00 (0.00-0.012) x10^3u/L Lymphocytes % 20.0 L (21.8-53.1) % Monocytes % 10.3 (5.3-12.2) % Eosinophils % 2.8 (0.8-7.0) % Basophils % 0.4 (0.2-1.2) % Absolute Granulocytes 7.32 H (1.78-5.38) x10^3/uL Basophils # 0.04 (0.01-0.08) x10^3/uL D-Dimer (0.0-0.50) mg/L Sodium 135 (135-145) mmol/L Potassium 4.5 (3.5-5.1) mmol/L Chloride 98 (98-107) mmol/L Carbon Dioxide 24 (22-30) mmol/L Anion Gap 17.5 H (5-15) MEQ/L BUN 21 H (9-20) mg/dL Creatinine 0.68 (0.66-1.25) mg/dL Estimated GFR 111.8 ML/MIN Glucose 104 (74-106) mg/dL Calcium 10.0 (8.4-10.2) mg/dL Total Bilirubin 0.80 (0.2-1.3) mg/dL AST 27 (17-59) U/L ALT 14 (0-50) U/L Alkaline Phosphatase 52 (38-126) U/L Creatine Kinase 99 (55-170) U/L Troponin I < 0.012 (0.000-0.033) ng/mL NT-Pro-B Natriuret Pep (<300) pg/mL Serum Total Protein 8.1 (6.3-8.2) g/dL Albumin 5.3 H (3.5-5.0) g/dL - Progress Progress: improved, re-examined Air Movement: good Progress Note: 09/08/24 14:37 54-year-old is evaluated in the ER for substernal chest pain with radiation to the back and jaw and also having dyspnea on exertion. EKG was abnormal at primary care office and sent in here for further evaluation. EKG here showed sinus rhythm with no obvious ST elevations suggesting acute isc hemia. Patient pain has some element of reproducibility especially in the back and is given symptomatic treatment, on reevaluation his pain is better but not completely resolved. Normal white count, chemistries fairly unremarkable and negative troponins. CT chest with contrast is negative for pulmonary embolism or any other acute findings. While in the ER patient heart rate was dropping in low 40s, upper 30s and patient does have history of feeling as if he is going to faint. This could be secondary to him being beta-kasi but patient needs further evaluation for this and with his chest pain and dyspnea on exertion I recommended observation admission but patient does not want to stay in the hospital at all. Patient and his significant other who is an RN, discussed in detail about the risk of leaving against the medical advice which would not only delay the diagnosis but worsening of condition and could be life-threatening which they do understand but he still adamant about leaving. He is advised to hold off on his metoprolol and talk to his primary care and set a follow-up appointment with cardiology for further evaluation. Discussed signs symptoms of worsening needing return to ER which he seems understanding. Patient is not confused or altered at all. Blood Culture(s) Obtained: No Antibiotics given: No Counseled pt/family regarding: lab results, diagnosis, need for follow-up, rad results, smoking cessation - Departure Departure Disposition: AMA Clinical Impression: Dyspnea on exertion, Precordial chest pain, Bradycardia Condition: Good Critical Care Time: No Referrals: MARCELLO PAK NP [Primary Care Provider] - Follow up with PCP 1 day STEPHANIA MUSE [CONSULTING PHYSICIAN] - Follow up/PCP as directed (Call for appointment for reevaluation) Additional Instructions: Discussed your medication with your primary care. Do not take metoprolol. Follow-up with primary care and cardiology for reevaluation. Return to ER for any worsening. Do not smoke or
[2024-09-08 12:40] VITALS: PULSE 42
--- NOTE | 2024-09-08 13:11 | XRAY ---
Indication: Pulmonary embolus. Multiple contiguous axial images obtained through the chest using 80 cc Isovue 370 contrast and PE protocol. Comparison: CT chest without September 29, 2020. Good opacification pulmonary arteries to include lobar and segmental branches. No pulmonary embolus. Heart not enlarged. Aorta is normal in course and caliber. No pathologic mediastinal/hilar lymphadenopathy. Lungs demonstrates mild bilateral dependent atelectasis. Elsewhere stable mild pulmonary emphysema and 6 mm posterior right lower lobe subpleural noncalcified nodule. No infiltrate or effusion. Bony thorax intact. Limited upper abdomen demonstrates incidental 7 mm right mid renal cortical cyst, not previously included in [id number]. Impression: 1. Negative pulmonary embolus. No acute cardiopulmonary abnormalities. 2. Chronic findings including pulmonary emphysema, benign right lower lobe noncalcified micronodule, and right renal cyst.
[2024-09-08 14:05] VITALS: BP 119/71; RESP 16
[2024-09-08 14:41] VITALS: O2SAT 96
== END 2024-09-08 14:46 | disposition left against medical advice (07) ==
LOC: ED 09:55
DX: R06.09 Other forms of dyspnea (principal); R07.2 Precordial pain; R00.1 Bradycardia, unspecified; R68.84 Jaw pain; M54.9 Dorsalgia, unspecified; I10 Essential (primary) hypertension; E78.5 Hyperlipidemia, unspecified; Z79.899 Other long term (current) drug therapy; Z72.0 Tobacco use
CPT/HCPCS: 36415; 71260; 80053; 82550; 83880; 84484; 85025; 85379; 93005; 93041; 94760; 96374; 96375; 99284; 99285; J2360; J2405; J3010; A9270-GY

== ENCOUNTER 2024-10-07 14:29 | Emergency (ER) | payer MEDICARE ==
[2024-10-07 14:47] VITALS: TEMP 98.8
[2024-10-07] MEDS ORDERED: Zofran 4 MG/2 ML VIAL ONE (15:03)
[2024-10-07] MEDS ORDERED: PROTONIX 40 MG IV IV ONE (15:03)
[2024-10-07] MEDS ORDERED: MORPHINE SULFATE 4 MG INJ ONE (15:04)
[2024-10-07] MEDS ORDERED: Sodium Chloride 0.9% 1000 ML 1,000 ML ONE (15:04)
[2024-10-07] MEDS: Sodium Chloride 0.9% 1000 ML 1,000 ML IV STA (15:12)
[2024-10-07] MEDS: Zofran 4 MG/2 ML VIAL IV ONE (15:13)
[2024-10-07] MEDS: PROTONIX 40 MG IV IV ONE (15:13)
[2024-10-07] MEDS: MORPHINE SULFATE 4 MG INJ IV ONE (15:13)
[2024-10-07 15:17] LABS: Absolute Neutrophil Ct (ANC) 5.99 x10^3/uL (1.78-5.38); BASOPHIL % 0.6 % (0.2-1.2); Basophil (Absolute #) 0.06 x10^3/uL (0.01-0.08); Eosinophil % 1.4 % (0.8-7.0); Eosinophil (Absolute #) 0.14 x10^3/uL (0.04-0.54); Hematocrit 45.7 % (40.1-51.0); Hemoglobin 15.7 g/dL (13.7-17.5); IMMATURE GRAN # 0.03 x10^3u/L (0.001-0.031); IMMATURE GRAN % 0.3 % (0.001-0.429); Lymphocyte (Absolute #) 2.77 x10^3/uL (1.32-3.57); Lymphocytes % 28.5 % (21.8-53.1); Mean Cell Volume 88.2 fL (79.0-92.2); Mean Corpuscular Hemoglobin 30.3 pg (25.7-32.2); Mean Corpuscular Hgb Concent. 34.4 g/dL (32.3-36.5); Mean Platelet Volume 9.6 fL (9.4-12.4); Monocyte (Absolute #) 0.74 x10^3/uL (0.30-0.82); Monocytes % 7.6 % (5.3-12.2); Neutrophil % 61.6 % (34.0-67.9); Platelet Count 381 x10^3/uL (163-337); Red Blood Count 5.18 x10^6/uL (4.63-6.08); White Blood Count 9.7 x10^3/uL (4.23-9.07)
[2024-10-07 15:21] LABS: ALBUMIN 5.8 g/dL (3.5-5.0); BILIRUBIN,TOTAL 0.9 mg/dL (0.2-1.3); Calcium 11.1 mg/dL (8.4-10.2); Creatinine 1 0.7 mg/dL (0.66-1.25); EST GLOMERULAR FILTRATION RATE 110.9 ML/MIN; Potassium 4.1 mmol/L (3.5-5.1); Total Protein 9.1 g/dL (6.3-8.2)
[2024-10-07] MEDS ORDERED: Hydromorphone 1 mg/ml Injection ONE (15:36)
[2024-10-07] MEDS: Hydromorphone 1 mg/ml Injection IV ONE (15:40)
--- NOTE | 2024-10-07 15:40 | ERPHSYRPT ---
- History of Present Illness Time Seen by Provider: 10/07/24 14:37 Historian: patient Exam Limitations: no limitations Patient Subjective Stated Complaint: pt c/o of abdominal pain that radiates to his back Triage Nursing Assessment: Pt brought self to the pain clinic and was c/o of severe abdominal pain that radiates to his back and they were concerned about a AAA and they sent him to the ER, hypertensive, rates pain as 10/10, pulses normal, skin n/w/d, nausea, dry heaves, reports a 45 lb weight loss isnce the beginning of the year Physician History: 54-year-old male presented to the ER from pain clinic with upper abdominal/epigastric pain with radiation to the back off-and-on for the last 6 to 7 months with progressive worsening lately. Patient reports pain getting worse with smoking and he stopped, also with oral intake with associated nausea and vomiting. Patient reports 10/10 intensity pain with radiation to the back today. Pain clinic was concern for acute pathology like AAA. Patient denies any history of aneurysm. No chest pain palpitations or shortness of breath reported. Patient reports almost 40 pounds weight loss in last couple of months. Allergies/Adverse Reactions: hydrocodone Adverse Reaction (Verified 10/07/24 14:46) nausea, vomiting Home Medications: Amlodipine Besylate [Norvasc] 5 mg PO DAILY 09/07/20 [History] Ropinirole HCl 1 mg PO HS 09/07/20 [History] Gabapentin [Neurontin ] 900 mg PO QID 11/15/21 [History] Ropinirole HCl 0.5 mg [Requip 0.5 MG] 0.5 mg PO DAILY 11/15/21 [History] Simvastatin 10 mg [Zocor 10MG] 10 mg PO DAILY 11/15/21 [History] Famotidine 20 mg [Pepcid 20 MG] 20 mg PO BID 09/13/22 [History] Benazepril/Hydrochlorothiazide [Benazepril-Hctz 20-12.5 mg Tab] 1 tape PO DAILY 09/08/24 [History] Fluticasone Propionate [Flonase NASAL] 1 spray NS DAILY 09/08/24 [History] Metoprolol Succinate 25 mg Xl* [Toprol-Xl 25MG Tablets] 25 mg PO DAILY 09/08/24 [History] Omeprazole 20 mg PO BID 09/08/24 [History] Tamsulosin HCl 0.4 mg [Flomax 0.4 MG] 0.4 mg PO DAILY 09/08/24 [History] Tizanidine HCl 4 mg [Zanaflex 4 MG] 4 mg PO DAILY 09/08/24 [History] Trazodone HCl 100 mg PO HS 09/08/24 [History] Hx Tetanus, Diphtheria Vaccination/Date Given: Yes (4 years ago) Hx Influenza Vaccination/Date Given: Yes Hx Pneumococcal Vaccination/Date Given: No Travel Risk - International Travel Have you traveled outside of the country in past 3 weeks: No - Emerging Infectious Disease Are you exhibiting symptoms associated with any current EIDs: Yes Symptoms: Abdominal Pain - Review of Systems Constitutional: No Symptoms Ears, Nose, & Throat: No Symptoms Respiratory: No Symptoms Cardiac: No Symptoms Abdominal/Gastrointestinal: Abdominal Pain, Nausea Genitourinary Symptoms: No Symptoms Musculoskeletal: Back Pain, Neck Pain Skin: No Symptoms Neurological: No Symptoms Endocrine: No Symptoms Hematologic/Lymphatic: No Symptoms Immunological/Allergic: No Symptoms - Past Medical History Pertinent Past Medical History: Yes Neurological History: Migraines ENT History: No Pertinent History Cardiac History: High Cholesterol, Hypertension Respiratory History: Emphysema, Other Endocrine Medical History: Other Musculoskeletal History: Degenerative Disk Disease GI Medical History: GERD History: No Pertinent History Psycho-Social History: Anxiety Male Reproductive Disorders: No Pertinent History Other Medical History: PATIENT REPORTS RECENTLY FOUND SPOTS ON LUNGS AND CURRENLTY ON STEROIDS AND ANTIBIOTICS. GOING FOR CT SCAN FOR LUNGS AND GETTING THYROID CHECKED DUE TO LAB WORK "OUT OF ORDER". REPORTS HAD SURGERY FOR REMOVAL OF KNOT ON RIGHT FOOT RECENTLY. PATIENT REPORTS HAS PAIN IN NECK PRIMARILY ON LEFT SIDE BUT IN THE PAST TWO WEEK STARTING TO COME INTO RIGHT SIDE. PAIN GOING UP NECK AND INTO FACE AND BACK OF HEAD. STATES DR BRANDT TOLD HIM FACE ISSUES PROBABLY MUSCLE/SOFT TISSUE. - Past Surgical History Past Surgical History: Yes Neuro Surgical History: No Pertinent History Cardiac: No Pertinent History Respiratory: No Pertinent History Gastrointestinal: No Pertinent History Genitourinary: No Pertinent History Musculoskeletal: Orthopedic Surgery Male Surgical History: No Pertinent History Other Surgical History: tonsils, spinal surgery..lumbar screw and plates . Repair of clavicle on right side. C6-C7 fusion throat, tennis right elbow - Social History Smoking Status: Former smoker How long have you smoked: 35 years Exposure to second hand smoke: No Drug Use: marijuana - Social Determinants of Health Will the patient participate in the screening: Yes Do you worry about a steady place to live?: No Do you have any problems with any of the following?: No known problems In the past 12 months,have you had to go without utilities?: No Transportation Issues: No Has anyone in your support network made you feel unsafe?: No Have you or anyone in your house had to go w/o enough food: No - Nursing Vital Signs Nursing Vital Signs: Initial Vital Signs Temperature 98.8 F 10/07/24 14:37 Pulse Rate 95 H 10/07/24 14:37 Respiratory Rate 21 10/07/24 14:37 Blood Pressure 162/122 10/07/24 14:37 O2 Sat by Pulse Oximetry 99 10/07/24 14:37 Pain Scale Pain Intensity [Medial Back] 10 Pain Intensity 10 - Physical Exam General Appearance: no apparent distress Eye Exam: PERRL/EOMI Ears, Nose, Throat Exam: normal ENT inspection Neck Exam: normal inspection, non-tender, supple, full range of motion Respiratory Exam: normal breath sounds, lungs clear Cardiovascular Exam: regular rate/rhythm, normal heart sounds Gastrointestinal/Abdomen Exam: soft, normal bowel sounds, tenderness (Epigastric/periumbilical area) Back Exam: normal inspection Extremity Exam: normal inspection, normal range of motion Neurologic Exam: alert, oriented x 3, cooperative Skin Exam: normal color SpO2 Interpretation: normal SpO2: 100 O2 Delivery: Room Air - Course EKG Interpreted by Me: RATE (52), Sinus Aneesh, NORMAL AXIS, NORMAL INTERVALS, Non-specific ST Changes Ordered Tests: Active Orders 24 hr Category Date Time Status EKG-ER Only STAT Care 10/07/24 14:51 Active IV Insertion STAT Care 10/07/24 14:51 Active NPO (ED) STAT Care 10/07/24 14:51 Active ABDOMEN AND PELVIS W CONTRAST [CT] Stat Exams 10/07/24 14:51 Completed CBC W DIFF Stat Lab 10/07/24 14:45 Completed CMP Stat Lab 10/07/24 14:45 Completed LIPASE Stat Lab 10/07/24 14:45 Completed Lactic Acid Stat Lab 10/07/24 14:51 Completed TROPONIN Q4H Lab 10/07/24 14:45 Completed TROPONIN Q4H Lab 10/07/24 19:00 Ordered TROPONIN Q4H Lab 10/07/24 23:00 Ordered UA W/RFX UR CULTURE Stat Lab 10/07/24 15:16 Completed Medication Summary Discontinued Medications Generic Name Dose Route Start Last Admin Trade Name Freq PRN Reason Stop Dose Admin Hydromorphone HCl 1 mg 10/07/24 15:37 10/07/24 15:40 Hydromorphone 1 Mg/1ml Inj IV 10/07/24 15:38 1 mg STAT ONE Administration Hydromorphone HCl Confirm 10/07/24 15:36 Hydromorphone 1 Mg/1ml Inj Administered 10/07/24 15:37 Dose 1 mg .ROUTE .STK-MED ONE Sodium Chloride 1,000 mls @ 999 mls/hr 10/07/24 14:51 10/07/24 16:22 Sodium Chloride 0.9% 1000 Ml IV 10/07/24 15:51 Infused .Q1H1M STA Infusion Sodium Chloride Confirm 10/07/24 15:04 Sodium Chloride 0.9% 1000 Ml Administered 10/07/24 15:05 Dose 1,000 mls @ ud .ROUTE .STK-MED ONE Morphine Sulfate 4 mg 10/07/24 14:51 10/07/24 15:13 Morphine Sulfate 4 Mg/Ml Injection IV 10/07/24 14:52 4 mg STAT ONE Administration Morphine Sulfate Confirm 10/07/24 15:04 Morphine Sulfate 4 Mg/Ml Injection Administered 10/07/24 15:05 Dose 4 mg .ROUTE .STK-MED ONE Ondansetron HCl 4 mg 10/07/24 14:51 10/07/24 15:13 Ondansetron Hcl 4 Mg/2 Ml Vial IV 10/07/24 14:52 4 mg STAT ONE Administration Ondansetron HCl Confirm 10/07/24 15:03 Ondansetron Hcl 4 Mg/2 Ml Vial Administered 10/07/24 15:04 Dose 4 mg .ROUTE .STK-MED ONE Pantoprazole Sodium 40 mg 10/07/24 14:51 10/07/24 15:13 Pantoprazole 40 Mg Vial IV 10/07/24 14:52 40 mg STAT ONE Administration Pantoprazole Sodium Confirm 10/07/24 15:03 Pantoprazole 40 Mg Vial Administered 10/07/24 15:04 Dose 40 mg IV .[facility]-MED ONE Lab/Rad Data: Laboratory Result Diagrams 10/07/24 14:45 10/07/24 14:45 Laboratory Results 10/07/24 10/07/24 10/07/24 Range/Units 15:16 14:51 14:45 WBC (4.23-9.07) x10^3/uL RBC (4.63-6.08) x10^6/uL Hgb (13.7-17.5) g/dL Hct (40.1-51.0) % MCV (79.0-92.2) fL MCH (25.7-32.2) pg MCHC (32.3-36.5) g/dL RDW (11.6-14.4) % Plt Count (163-337) x10^3/uL MPV (9.4-12.4) fL Gran % (34.0-67.9) % Immature Gran % (Auto) (0.001-0.429) % Nucleat RBC Rel Count (0.00-0.2) % Eos # (Auto) (0.04-0.54) x10^3/uL Immature Gran # (Auto) (0.001-0.031) x10^3u/L Absolute Lymphs (auto) (1.32-3.57) x10^3/uL Absolute Monos (auto) (0.30-0.82) x10^3/uL Absolute Nucleated RBC (0.00-0.012) x10^3u/L Lymphocytes % (21.8-53.1) % Monocytes % (5.3-12.2) % Eosinophils % (0.8-7.0) % Basophils % (0.2-1.2) % Absolute Granulocytes (1.78-5.38) x10^3/uL Basophils # (0.01-0.08) x10^3/uL Sodium (135-145) mmol/L Potassium (3.5-5.1) mmol/L Chloride (98-107) mmol/L Carbon Dioxide (22-30) mmol/L Anion Gap (5-15) MEQ/L BUN (9-20) mg/dL Creatinine (0.66-1.25) mg/dL Estimated GFR ML/MIN Glucose (74-106) mg/dL Lactic Acid 1.6 (0.4-2.0) Calcium (8.4-10.2) mg/dL Total Bilirubin (0.2-1.3) mg/dL AST (17-59) U/L ALT (0-50) U/L Alkaline Phosphatase (38-126) U/L Troponin I < 0.012 (0.000-0.033) ng/mL Serum Total Protein (6.3-8.2) g/dL Albumin (3.5-5.0) g/dL Lipase (23-300) U/L Urine Color Yellow (Yellow) Urine Appearance Clear (Clear) Urine pH 8.0 (4.6-8.0) Ur Specific [place] 1.010 (1.005-1.030) Urine Protein Negative (Negative) Urine Glucose (UA) Negative (Negative) mg/dL Urine Ketones Negative (Negative) Urine Blood Negative (Negative) Urine Nitrite Negative (Negative) Urine Bilirubin Negative (Negative) Urine Urobilinogen 0.2 (0.2) mg/dL Ur Leukocyte Esterase Negative (Negative) U Hyaline Cast (Auto) NONE SEEN (0-2) /LPF Urine Microscopic RBC 0-2 (0-5) /HPF Urine Microscopic WBC 0-2 (0-5) /HPF Ur Epithelial Cells None Seen (None Seen) /HPF Urine Bacteria None Seen (None Seen) /HPF Urine Culture Reflexed NO (NO) 10/07/24 10/07/24 Range/Units 14:45 14:45 WBC 9.7 H (4.23-9.07) x10^3/uL RBC 5.18 (4.63-6.08) x10^6/uL Hgb 15.7 (13.7-17.5) g/dL Hct 45.7 (40.1-51.0) % MCV 88.2 (79.0-92.2) fL MCH 30.3 (25.7-32.2) pg MCHC 34.4 (32.3-36.5) g/dL RDW 14.0 (11.6-14.4) % Plt Count 381 H (163-337) x10^3/uL MPV 9.6 (9.4-12.4) fL Gran % 61.6 (34.0-67.9) % Immature Gran % (Auto) 0.3 (0.001-0.429) % Nucleat RBC Rel Count 0.0 (0.00-0.2) % Eos # (Auto) 0.14 (0.04-0.54) x10^3/uL Immature Gran # (Auto) 0.03 (0.001-0.031) x10^3u/L Absolute Lymphs (auto) 2.77 (1.32-3.57) x10^3/uL Absolute Monos (auto) 0.74 (0.30-0.82) x10^3/uL Absolute Nucleated RBC 0.00 (0.00-0.012) x10^3u/L Lymphocytes % 28.5 (21.8-53.1) % Monocytes % 7.6 (5.3-12.2) % Eosinophils % 1.4 (0.8-7.0) % Basophils % 0.6 (0.2-1.2) % Absolute Granulocytes 5.99 H (1.78-5.38) x10^3/uL Basophils # 0.06 (0.01-0.08) x10^3/uL Sodium 138 (135-145) mmol/L Potassium 4.1 (3.5-5.1) mmol/L Chloride 97 L (98-107) mmol/L Carbon Dioxide 25 (22-30) mmol/L Anion Gap 19.0 H (5-15) MEQ/L BUN 13 (9-20) mg/dL Creatinine 0.70 (0.66-1.25) mg/dL Estimated GFR 110.9 ML/MIN Glucose 115 H (74-106) mg/dL Lactic Acid (0.4-2.0) Calcium 11.1 H (8.4-10.2) mg/dL Total Bilirubin 0.90 (0.2-1.3) mg/dL AST 27 (17-59) U/L ALT 20 (0-50) U/L Alkaline Phosphatase 88 (38-126) U/L Troponin I (0.000-0.033) ng/mL Serum Total Protein 9.1 H (6.3-8.2) g/dL Albumin 5.8 H (3.5-5.0) g/dL Lipase 66 (23-300) U/L Urine Color (Yellow) Urine Appearance (Clear) Urine pH (4.6-8.0) Ur Specific [place] (1.005-1.030) Urine Protein (Negative) Urine Glucose (UA) (Negative) mg/dL Urine Ketones (Negative) Urine Blood (Negative) Urine Nitrite (Negative) Urine Bilirubin (Negative) Urine Urobilinogen (0.2) mg/dL Ur Leukocyte Esterase (Negative) U Hyaline Cast (Auto) (0-2) /LPF Urine Microscopic RBC (0-5) /HPF Urine Microscopic WBC (0-5) /HPF Ur Epithelial Cells (None Seen) /HPF Urine Bacteria (None Seen) /HPF Urine Culture Reflexed (NO) - Progress Progress: improved Progress Note: 10/07/24 18:06 54-year-old is evaluated in the ER for epigastric/upper abdominal pain with radiation to the back for the last few months with progressive worsening lately. Pain management was concerned about AAA. I have obtained bedside ultrasound by myself with no pulsatile mass noticed. He is given fluids and symptomatic treatment with morphine and Dilaudid, on reevaluation he is feeling better. Also given Protonix. Workup showed normal white count, chemistries with mild element of dehydration but negative troponin. EKG is sinus rhythm with no acute ST elevations. I have obtained CT abdomen pelvis with contrast which is negative for perforated ulcer, obstruction, cholecystitis/pancreatitis/AAA. Some element of constipation. No other acute findings. I believe patient has some element of gastritis, although he is taking omeprazole, I will give him some Carafate to take along with it and outpatient follow-up with primary care to be referred to GI for EGD as he might have gastri tis and also needs further workup for 40 pound weight loss last couple month. Discussed signs symptoms of worsening needing return to ER which she seems understanding. Stable for discharge. Complexity of problems addressed: Acute high Complexity of data reviewed/analyzed: Extensive Risk of complication/morbidity/mortality: Moderate Counseled pt/family regarding: lab results, diagnosis, need for follow-up, rad results Medical Desision Making - Independent Historian Additional History obtained from: Spouse - Diagnostic Testing Diagnostic test were ordered, analyzed, and reviewed by me: Yes Radiological Interpretation: Reviewed by me - Risk of complications The pt has a mod risk of morbidity or mortality based on: Need for prescription drug management - Departure Departure Disposition: Home Clinical Impression: Epigastric pain Condition: Stable Critical Care Time: No Referrals: MARCELLO PAK NP [Primary Care Provider] - Follow up with PCP 1 day Instructions: Gastritis - ED discharge instructions Additional Instructions: Take Tylenol as needed. Follow-up with primary care for reevaluation and possible need referral for GI for endoscopy for further evaluation. Return to ER for intractable pain/vomiting/fever chills/decreased oral intake etc. Prescriptions: Sucralfate 1 gm [Carafate 1 GM] 1 g PO ACHS #30 tablet Ondansetron ODT 4 MG [Zofran Odt 4 mg] 1 ea PO QIDPRN PRN #10 tablet PRN Reason: n/v
[2024-10-07 15:48] LABS: Appearance Clear (Clear); Bacteria None Seen /HPF (None Seen); Bilirubin Negative (Negative); Blood Negative (Negative); Epithelial Cells None Seen /HPF (None Seen); Glucose, Urine Negative (Negative); Hyaline Casts NONE SEEN /LPF (0-2); Ketones Negative (Negative); Leukocyte Esterase Negative (Negative); Nitrite Negative (Negative); Protein,Urine Dip Negative (Negative); RBC 0-2 /HPF (0-5); Urobilinogen 0.2 mg/dL (0.2); WBC 0-2 /HPF (0-5)
--- NOTE | 2024-10-07 17:18 | XRAY ---
Indication: Upper abdomen pain. AAA. Multiple contiguous axial images obtained through the abdomen and pelvis using 80 cc Isovue 370 contrast. Comparison: November 13, 2021 Lung bases again demonstrates pulmonary emphysema. New minimal right base subsegmental atelectasis/scarring. No infiltrate or effusion. Heart not enlarged. Stable beam artifact from bilateral L4-L5 fusion hardware. Noncontrasted stomach and bowel loops appear nonobstructed again with normal appendix. There is now mild diffuse scattered colonic fecal debris throughout. Stable 5 mm right lobe hepatic and 6 mm right mid renal cortical cysts. No free fluid/air. Remaining liver, gallbladder, pancreas, spleen, adrenal glands, kidneys, ureters, and bladder are unremarkable. Again minimal aortoiliac calcifications. No AAA or pathological retroperitoneal lymphadenopathy. Osseous structures intact again with L5-S1 laminectomy. Impression: 1. Again beam artifact from lumbar fusion hardware. 2. New mild diffuse fecal stasis. 3. Chronic findings including pulmonary emphysema, hepatic/right renal cysts, and minimal arteriosclerotic disease. 4. Remaining CT abdomen/pelvis with contrast exam continues to be negative.
[2024-10-07 18:03] VITALS: PULSE 65; RESP 21
[2024-10-07 18:06] VITALS: BP 145/86
[2024-10-07 18:11] VITALS: O2SAT 100
== END 2024-10-07 18:17 | disposition home or self-care (01) ==
LOC: ED 14:29
DX: R10.13 Epigastric pain (principal); R11.2 Nausea with vomiting, unspecified; E78.5 Hyperlipidemia, unspecified; I10 Essential (primary) hypertension; Z79.899 Other long term (current) drug therapy
CPT/HCPCS: 36415; 74177; 80053; 81001; 83605; 83690; 84484; 85025; 93005; 96361; 96374; 96375; 99284; 99285; J1171; J2270; J2405

== ENCOUNTER 2024-11-09 05:54 | Day surgery (SDC) | payer MEDICARE ==
[2024-11-09] MEDS ORDERED: Lactated Ringers 1,000 ML IV ONE (06:15)
[2024-11-09] MEDS: Lactated Ringers 1,000 ML IV ONE (06:18)
[2024-11-09] MEDS ORDERED: propofoL IV ONE ×2 (07:55→08:13)
[2024-11-09] MEDS ORDERED: Xylocaine-Mpf 2% 5 Ml Vial ONE (07:55)
[2024-11-09] MEDS ORDERED: Versed 2 MG/2 ML Injection ONE (07:55)
[2024-11-09 09:01] VITALS: RESP 18
[2024-11-09 09:14] VITALS: BP 113/78; PULSE 55; TEMP 98.5; O2SAT 97
--- NOTE | 2024-11-10 10:30 | OP ---
SURGERY DATE/TIME: 11/09/2024 4011-3116 PREOPERATIVE DIAGNOSES: 1) Abdominal pain. 2) Rectal bleeding. 3) A 40-pound weight loss. POSTOPERATIVE DIAGNOSES: 1) Mild gastritis. 2) Two small sigmoid colon polyps. PROCEDURES: Esophagogastroduodenoscopy with cold forceps biopsy of the gastric antrum and colonoscopy with cold forceps biopsies of the polyps in the sigmoid colon. SURGEON: William Humphreys MD. ANESTHESIA: Medications given by the anesthesia department. INDICATIONS: The patient is a 54-year-old white male patient presenting now for complaints of abdominal pain. He reports it has been going on for years. He previously had been diagnosed with H pylori which he felt somewhat better after initial treatment, but he reports that he has really been having abdominal pain back to that time. He reports about a 40-pound weight loss over the past several months. The abdominal pain is becoming worse. The patient does admit to occasional smoking of marijuana as he says it helps his appetite. He has no other medical problems of note. The patient was felt the need to have endoscopic evaluation. He was described the risks of the procedure including risks of perforation, phlebitis, untoward reaction to medication, bleeding, and missed lesions. The patient verbalized his understanding and desired to have procedure performed. DESCRIPTION OF PROCEDURE AND FINDINGS: The patient was placed in the left lateral decubitus position. A bite block was placed, and a flexible Olympus gastroscope was used to intubate the oropharynx. The scope was easily introduced into the esophagus which appeared to be essentially normal throughout its length. The stomach was entered where normal gastric rugal folds were seen. These distended nicely with insufflation of air. The scope was passed along the greater curvature of the stomach to the antrum. Pylorus was encountered and intubated. Duodenum was inspected and found to be essentially normal. The scope was withdrawn towards the stomach. Again, retroflexed view was obtained of the lesser curvature, fundus, and cardia regions of the stomach and these appeared to be essentially normal. The scope was then redirected towards the gastric antrum, and biopsies obtained from the gastric antrum to rule out the presence of Helicobacter pylori-type organisms. The scope was then removed from the patient. Next, a digital rectal examination was performed and revealed normal anal sphincter tone, no masses, and normal prostate. The flexible Olympus videocolonoscope was used to intubate the rectum. A view of the colon was developed sequentially to the cecum. Upon insertion and withdrawal, there were noted 2 tiny polyps, likely hyperplastic. These were biopsied using cold forceps biopsy instruments to determine the nature of the lesions. The scope was then removed. The patient tolerated the procedure well and sent back to outpatient recovery in good condition. The prep was noted to be fair to good.
== END 2024-11-09 09:23 | disposition home or self-care (01) ==
LOC: SDC 05:54
PROVIDERS: ATTEND Family Medicine
DX: K63.5 Polyp of colon (principal); K29.50 Unspecified chronic gastritis without bleeding; R10.9 Unspecified abdominal pain; K62.5 Hemorrhage of anus and rectum; R63.4 Abnormal weight loss
CPT/HCPCS: 93005; J2250; J2704